=== PATIENT | female | born 1950 | race Caucasian/White ===

== ENCOUNTER → 2016-06-24 | Outpatient (CLI) | payer OTHER ==
[~2016-06-24] MED LIST: ACET1TAB PO; ASPI325T4 PO; BACL50AM IT; CALC500T50 PO; CELE200C PO; ERGO400T2 PO; ESCI20TA10 PO; FENT1PAT19 TP; FENT1PAT91 TD; FURO-69 PO; GLUC1CAP48 PO; INTE0.3K2 SQ; MELO7.5O PO; OMEG1CAP PO; OXYC1TAB7 PO; PRAV20TA PO; UBID100C12 PO
--- NOTE | 2016-06-25 03:34 | PAIN ---
DATE OF SERVICE: 06/24/2016 PROGRESS NOTE DIAGNOSES: Lumbar spondylosis with low back pain. HISTORY OF PRESENT ILLNESS: The patient is a 66-year-old female who returns for followup status post medication management with Duragesic patches at 75 mcg every 3 days. The patient reports she is doing very well with this. She has been on a very stable regimen with good results and about 75-80% improvement in her pain in the low back from the medication. The patient reports no new motor or sensory deficits, no new bowel or bladder incontinence or other complaints. The patient reports her pain anywhere from a 2-4 on a scale of 10. It is essentially constant, aching, which is worse with some activities, walking and standing. She is still using a walker to ambulate, which is helpful and maintaining balance as well as some support with ambulation. The patient reports otherwise doing well. No side effects with the medications and has had appropriate K-TRACS reporting to date and appropriate urinalysis today as well and we will have a urinalysis drawn today as random screening. PHYSICAL EXAMINATION: VITAL SIGNS: The patient's blood pressure is 123/63, pulse 96, respirations 18, temperature is 98.3 degrees Fahrenheit, height is 5 feet 2 inches and weighs 143 pounds. GENERAL: The patient is awake, alert, oriented, appropriate, very pleasant demeanor. HEENT: Shows normocephalic, atraumatic. Extraocular movements are intact and symmetrical. The patient is wearing eyeglasses. Oral cavity shows mucous membranes are moist and pink. Dentition is intact. NECK: Shows anterior throat supple without palpable lymphadenopathy noted. Swallow reflex is symmetrical. CHEST: Shows normal on inspection. Breath sounds are clear to auscultation bilaterally. HEART: Shows S1 and S2 clear. No murmurs are auscultated. ABDOMEN: Soft, nontender, and nondistended. The patient has intrathecal pump, which is easily palpated and nontender. No organomegaly is noted. No rebound or guarding demonstrated. No other abnormalities. BACK: The patient's back shows spine grossly in midline. Some increase in thoracic kyphosis and some mild flattening of lumbar lordotic curvature is noted. The patient's lumbar paraspinous muscle shows some moderate tenderness only in the low lumbar distribution bilaterally and only diffusely without radiation. It is symmetrical without evidence of atrophy or hypertrophy. No trigger points. No tenderness over the sacrum or sacroiliac regions. The patient shows good rotation and motion both laterally as well as extension and flexion of lumbar spine without significant pain reported. EXTREMITIES: Lower extremities show deep tendon reflexes 1+ in the patellar and tendo calcaneus tendons and are equal. Motor exam is approximately 4 on a scale of 5, but is symmetrical with dorsiflexion, extension, quadriceps and hamstring flexion and equal. PLAN: Options were discussed with the patient. We will renew patient's Duragesic patches 75 mcg 1 patch to be worn every 72 hours. The patient given instruction as well as side effects to be aware of the medication. He has been given a 90-day supply and will follow up at the end of that time or sooner if necessary. STACEY VALERIO MD DR: NEYDA/viviana JOB#: [id number] / [id number]
== END | disposition home or self-care (01) ==
LOC: PNCL 12:55
PROVIDERS: ATTEND Anesthesiology
DX: M47.896 Other spondylosis, lumbar region (principal); M54.5 Low back pain
CPT/HCPCS: G0463

== ENCOUNTER → 2016-10-06 | Outpatient (CLI) | payer OTHER ==
[~2016-10-06] MED LIST changes: -ASPI325T4 PO; +ASPI325T8 PO; -CALC500T50 PO; +CALC500T54 PO; -ESCI20TA10 PO; +LEXAPRO20 MG PO; -UBID100C12 PO; +UBID100C40 PO
--- NOTE | 2016-10-07 03:19 | PAIN ---
DATE OF SERVICE: 10/06/2016 PROGRESS NOTE FOR PAIN CLINIC DIAGNOSES: Lumbar spondylosis with low back pain. HISTORY OF PRESENT ILLNESS: This is a 66-year-old female, who returns for followup status post medication management with Duragesic patches. The patient also has a baclofen pump, which is recently had been replaced by her neurologist ____. The patient reports she has been doing fairly well with this and is having no side effects and reports that she has very well with her fentanyl patches with about an 80% improvement in her pain level without side effects from this as well. The patient reports her pain is still having nagging pain and is in the low back as a constant dull pain, which she is doing well with medication, rates as a 5 on a scale of 10. Reports it does not awaken her from sleep at night. She feels better with sitting ____ standings, using a walker to ambulate at all times generally. The patient reports no new motor or sensory deficits, no new bowel or bladder incontinence, no side effects with the medications or other complaints. PHYSICAL EXAMINATION: VITAL SIGNS: The patient's blood pressure is 142/57, pulse 63, respirations 18, weight is 138 pounds. The patient's height is 5 feet 2 inches. GENERAL: The patient is awake, alert, oriented, appropriate, very pleasant demeanor. HEENT: Shows normocephalic, atraumatic. Extraocular movements are intact and symmetrical. The patient wears eyeglasses. Oral cavity shows mucous membranes are moist and pink. Dentition is intact. NECK: Shows anterior throat supple without palpable lymphadenopathy noted. Swallow reflex is symmetrical. Neck shows full rotational motion of the cervical spine without difficulty. CHEST: Shows normal on inspection. Breath sounds are clear to auscultation bilaterally. HEART: Shows S1 and S2 clear. ABDOMEN: Soft, nontender, nondistended. Well healed surgical scars noted from intrathecal pump placement, which is well healing in appearance and mildly tender with palpation, but no erythema or discharge or drainage. BACK: The patient's back shows spine grossly in midline, exaggerated increased thoracic kyphosis and mild flattening of lumbar lordotic curvature. Lumbar paraspinous musculature shows symmetrical on inspection without atrophy, hypertrophy. The patient shows some moderate tenderness in the paraspinous musculature bilaterally with direct palpation, but without radiation. No tenderness over the sacrum or sacroiliac regions. EXTREMITIES: Lower extremities showed deep tendon reflexes 1+ in the patellar and tendo calcaneus tendons are equal. Motor exam is strong with dorsiflexion, extension, quadriceps and hamstring flexion symmetrical approximately 4 on a scale of 5, but equal. PLAN: Options were discussed with the patient. We will refill the patient's Duragesic patches 75 mcg changed once every 72 hours. The patient was given a 90-day supply with instructions, side effects to be aware of regarding the medication as well and will follow up in approximately 90 days or sooner if necessary. STACEY VALERIO MD DR: NEYDA/viviana JOB#: [id number] / [id number]
== END | disposition home or self-care (01) ==
LOC: PNCL 13:00
PROVIDERS: ATTEND Anesthesiology
DX: M47.896 Other spondylosis, lumbar region (principal)
CPT/HCPCS: G0463

== ENCOUNTER → 2016-12-01 | Outpatient (CLI) | payer OTHER ==
--- NOTE | 2016-12-02 02:40 | PAIN ---
DATE OF SERVICE: 12/01/2016 PROGRESS NOTE FOR PAIN CLINIC DIAGNOSIS: Lumbar spondylosis with low back pain. HISTORY OF PRESENT ILLNESS: The patient is a 66-year-old female who returns for followup status post medication management with Duragesic patches. The patient is wearing a 75 mcg patch q.72 hours with good results. The patient has been on this for several years now, is doing very well, very stable regimen. She also has a baclofen pump, which is maintained by her neurologist and was recently replaced. The patient reports her pain level is about a 5 on a scale of 10 at its worst in her low back, but is very tolerable. She is increasing her activity with greater ease and comfort with the medications. She reports good longevity with the medication lasting a good 72 hours without difficulty. The patient reports no side effects with the medication, occasional constipation, but it is well controlled with some [id number]-[id number] medications and hydration that she is using. We tried some Movantik with her in the past, but that was too powerful and the patient reports she had an overwhelming response from it and does well with her own management at this time. The patient reports no new motor or sensory deficits, no new bowel or bladder incontinence or other complaints. Reports pain again in the low back. Describes as aching, dull, alternating with some sharper pains with activity, but sleeping well at night, does not awaken her from sleep. She is doing much better with sitting or lying down. Standing and walking, which she uses a walker to accomplish, is tolerable, but is more painful with ambulation. The patient reports no new motor or sensory deficits, no new changes. PHYSICAL EXAMINATION: VITAL SIGNS: Today, the patient's blood pressure is ____, pulse 75, respirations 18, temperature 98.7 degrees Fahrenheit, height is 5 feet 2 inches, weight is 138 pounds. GENERAL: The patient is awake, alert, oriented, appropriate, has a very pleasant demeanor. HEENT: Shows normocephalic, atraumatic. Extraocular movements are intact and symmetrical. Oral cavity shows mucous membranes moist and pink. Dentition is intact. The patient is wearing eye glasses. Throat shows anterior throat supple without palpable lymphadenopathy noted. Swallow reflex is symmetrical. NECK: Shows full rotational motion of the cervical spine, both laterally as well as extension and flexion without difficulty. CHEST: Shows normal on inspection with breath sounds clear to auscultation bilaterally. HEART: Shows S1 and S2 clear. No murmurs auscultated. ABDOMEN: Soft, obese, nontender, nondistended. No palpable organomegaly is noted. The patient does have an easily palpable intrathecal pump, which is mobile and nontender with well-healed surgical scar noted. BACK: Shows increased thoracic kyphosis and some flattening of the lumbar lordotic curvature. Lumbar paraspinous musculature shows symmetrical on inspection, with palpation shows some moderate tenderness, but only in the lower lumbar distribution without significant radiation or asymmetry. The patient shows somewhat limited extension of the lumbar spine, but good forward flexion, right and left lateral rotation is performed with adequate rotation greater than 10 degrees right and left without significant pain reported. EXTREMITIES: ____ Lower extremities show deep tendon reflexes 1+ in the patellar and tendo calcaneus tendons. Motor exam is strong with dorsiflexion, extension, quadriceps and hamstring flexion, intact at about 4 on a scale of 5, but symmetrical. Peripheral pulses are 1+ posterior tibial and dorsalis pedis pulses. No peripheral edema is noted. No clubbing or cyanosis. The patient is able to stand and again has a significant forward flexed posture with increased thoracic kyphosis, is walking with a shuffling gait, manages very well using a walker to ambulate. PLAN: Options were discussed with the patient and her who accompanies her to visit today. Old chart was reviewed as was her current medication regimen and updated. Current review of systems updated today as well and we will refill the patient's Duragesic patches at 75 mcg for a 90-day supply. The patient was given instructions as well as side effects to be aware of with the medication. Also encouraged the patient to increase her activity as tolerated and to maintain her walker usage as she is doing. Discussed nutritional options with hydration being the significant emphasis with the narcotic analgesics and the patient is to keep herself fairly well hydrated and we will continue to encourage this as well. The patient will follow up in approximately 90 days or sooner if necessary. STACEY VALERIO MD DR: NEYDA/viviana JOB#: [id number] / [id number]
== END | disposition home or self-care (01) ==
LOC: PNCL 12:46
PROVIDERS: ATTEND Anesthesiology
DX: M47.896 Other spondylosis, lumbar region (principal)
CPT/HCPCS: G0463

== ENCOUNTER → 2017-04-23 | Outpatient (CLI) | payer OTHER ==
[~2017-04-23] MED LIST changes: +ASPI-630 PO
--- NOTE | 2017-04-23 18:05 | PAIN ---
DATE OF SERVICE: 04/23/2017 PROGRESS NOTE FOR PAIN CLINIC DIAGNOSES: Low back pain with lumbar spondylosis. HISTORY OF PRESENT ILLNESS: The patient is a 67-year-old female who returns for followup status post medication management with Duragesic patches 75 mcg. The patient has been on very stable regimen for extended period of time now with good relief of pain, approximately 80% by her estimation. The patient reports no side effects with medication. No skin irritation, constipation, nausea, dysphoria or memory difficulties. The patient reports she still has significant pain in the low back, which is an aching pain on the mid back as well, but very well controlled for the most part with the Duragesic patches. The patient reports her pain is a 7 on a scale of 10 at its worst, 6 on average and a 4 at its least and is a 4 today. The patient reports she is still increasing activity, using a walker to ambulate. She and her are walking almost daily basis when the weather is not too cold. The patient reports she sporadically awakens at night from the pain, but usually is able to sleep through the night without difficulty. No new motor or sensory deficits. Again, no side effects with medication. PHYSICAL EXAMINATION: VITAL SIGNS: Today, blood pressure 144/67, pulse 70, respirations 16, temperature 98.8 degrees Fahrenheit, weight is 140 pounds. GENERAL: The patient is awake, alert, oriented, appropriate, very pleasant demeanor. HEENT: Shows normocephalic, atraumatic. Extraocular movements are intact, symmetrical. Oral cavity: Mucous membranes moist and pink. Dentition is intact. NECK: Shows anterior throat supple without palpable lymphadenopathy noted. Swallow reflex symmetrical. CHEST: Shows normal with inspection. Breath sounds clear to auscultation bilaterally. HEART: Shows S1, S2 clear. No murmurs auscultated. ABDOMEN: Obese, soft, nontender, nondistended. The patient has easily palpable intrathecal pump, which is nontender with well-healed surgical scar over it. BACK: The patient's back shows significant exaggeration of thoracic kyphosis, some flattening lumbar lordotic curvature. No previous bruises, lesions, rashes are noted on the skin. Lumbar paraspinous muscle shows some diffuse tenderness throughout the upper, middle, lower distribution, but only diffusely without radiation, without atrophy or hypertrophy. EXTREMITIES: Lower extremities show deep tendon reflexes 1+ in the patellar and tendo calcaneus tendons are equal. Motor exam is strong with dorsiflexion, extension, quads and hamstring rated at approximately 4 on a scale of 5, but symmetrical. Peripheral pulses are 1+ posterior tibial. No peripheral edema is noted bilaterally. Options were discussed with the patient. The patient's old chart was reviewed, her current medication regimen updated, current review of systems updated today as well and we will refill the patient's Duragesic patches for 90-day supply. The patient has had appropriate K-TRACS reporting as well as appropriate urinalyses to date and while we renew the patient's narcotic contract as it is scheduled to renew, we will schedule for urinalysis in the future on March 03. The patient will follow up in approximately 90 days, was given instructions as well as side effects to be aware with medication. STACEY VALERIO MD DR: NEYDA/viviana JOB#: [id number] / [id number]
== END | disposition home or self-care (01) ==
LOC: PNCL 09:52
PROVIDERS: ATTEND Anesthesiology
DX: M47.896 Other spondylosis, lumbar region (principal)
CPT/HCPCS: G0463

== ENCOUNTER → 2017-07-16 | Outpatient (CLI) | payer OTHER | LOC: PNCL 11:14 | DX: M47.896 Other spondylosis, lumbar region (principal); M54.5 Low back pain; Z88.0 Allergy status to penicillin; Z88.8 Allergy status to other drugs, medicaments and biological substances; Z79.82 Long term (current) use of aspirin; Z79.899 Other long term (current) drug therapy | CPT/HCPCS: G0463 ==

== ENCOUNTER → 2017-11-05 | Outpatient (CLI) | payer OTHER | END | disposition home or self-care (01) | LOC: PNCL 09:03 | DX: M47.896 Other spondylosis, lumbar region (principal); Z79.899 Other long term (current) drug therapy | CPT/HCPCS: G0463 ==

== ENCOUNTER → 2018-01-28 | Outpatient (CLI) | payer OTHER ==
--- NOTE | 2018-01-28 13:36 | PAIN ---
DATE OF SERVICE: 01/28/2018 PROGRESS NOTE FOR PAIN CLINIC DIAGNOSES: Low back pain with lumbar spondylosis. HISTORY OF PRESENT ILLNESS: The patient is a 68-year-old female who returns for followup status post medication management, Duragesic patches 75 mcg. The patient has been on very stable regimen for extended period of time with very good results. The patient reports about 75%-80% improvement overall and reports she has been very stable. No new motor or sensory deficits and no new pain complaints. The patient reports her pain is a 4 on a scale of 10 at its worst, 4 on average, 4 at its least and is a 4 today. The patient reports no new motor or sensory deficits and no new bowel or bladder incontinence or other complaints. Pain in the low back mainly and some in the right shoulder as well but mainly in the low back, worse with walking and standing for a prolonged period. She is using a walker, which she has had for some time as well. The patient reports it does not awaken her from sleep at night. She feels much better with sitting or lying down with the pain is almost gone. The patient reports no other complaints. Again, doing well with the patches and no skin irritation. She is rotating the areas of the patch placed mainly on the upper back and posterior shoulders every 3 days. The patient is maintaining hydration. No constipation complaint. No itching, nausea or sedation. PHYSICAL EXAMINATION: VITAL SIGNS: The patient's blood pressure 141/57, pulse 90, respirations 18, temperature 98.8 degrees Fahrenheit, height is 5 feet 2 inches and weight is 135 pounds. GENERAL: The patient is awake, alert, oriented, appropriate and very pleasant demeanor. HEENT: Head shows normocephalic and atraumatic. Extraocular movements intact and symmetrical. Oral cavity: Mucous membranes moist and pink. The patient is wearing eyeglasses. NECK: Shows anterior throat supple without palpable lymphadenopathy noted. Swallow reflex is symmetrical. CHEST: Shows normal on inspection. Breath sounds are clear to auscultation bilaterally. HEART: Shows S1 and S2 clear. No murmurs auscultated. ABDOMEN: Soft, nontender and nondistended. No palpable organomegaly is noted. No rebound or guarding demonstrated. BACK: Shows grossly midline spine. The patient has increased thoracic kyphosis, which is fairly exaggerated, with flattening of the lumbar lordotic curvature. With inspection of the lumbar paraspinous musculature shows no asymmetry and with palpation shows some moderate tenderness throughout the upper, middle and lower distribution of the paraspinous muscles. No tenderness over the spinous processes, sacrum or sacroiliac regions. The patient shows good rotation of motion in the lumbar spine, both laterally as well as flexion, extension without significant pain reported. EXTREMITIES: The patient's lower extremities show deep tendon reflexes 1+ in the patellar and tendo-calcaneus tendons. Motor exam is a 4 on a scale of 5 and equal and symmetrical bilaterally with dorsiflexion, extension, quadriceps and hamstring flexion. Peripheral pulses are 1+ posterior tibia. No peripheral edema is noted bilaterally. Options were discussed with the patient and the patient's spouse who accompanies her to visit today and the patient's old chart was reviewed as well as her current medication regimen updated. Current review of systems updated today as well. We will refill the patient's 90-day supply of Duragesic patch 75 mcg as she is doing very well with this. The patient has had appropriate K-TRACS reporting as well as appropriate urinalysis to date. We will have her return in approximately 90 days or sooner if necessary. The patient was counseled as to activity level as well as side effects to be aware of as well as medication regimen and side effects regarding the medications. STACEY VALERIO MD DR: NEYDA/viviana JOB#: [id number] / [id number]
== END | disposition home or self-care (01) ==
LOC: PNCL 10:50
PROVIDERS: ATTEND Anesthesiology
DX: M47.896 Other spondylosis, lumbar region (principal); Z88.0 Allergy status to penicillin; Z88.8 Allergy status to other drugs, medicaments and biological substances
CPT/HCPCS: G0463

== ENCOUNTER → 2018-03-23 | Outpatient (CLI) | payer OTHER ==
--- NOTE | 2018-03-24 00:35 | PAIN ---
DATE OF SERVICE: 03/23/2018 PROGRESS NOTE FOR PAIN CLINIC DIAGNOSIS: Low back pain with lumbar spondylosis. HISTORY OF PRESENT ILLNESS: The patient is a 68-year-old female who returns for followup status post medication management with Duragesic patch 75 mcg. The patient has does very well with these, has been on a very stable regimen with the medication for several years now with no side effects from the medication at all. The patient reports it controls her pain to about a 75-80% level. Reports she is sleeping well at night. She still has the pain in the low back and the left shoulder at times, but is very dependent on her activity. Pain is worst on a scale of 10 as an 8 last week, average is 6, at its least is a 3 and is a 3 today. The patient reports she sleeps about 7-8 hours at night. It does not disturb her from sleep. She is getting around with reasonable comfort and is happy with her level of pain control at this time. The patient reports no new motor or sensory deficits, no new bowel or bladder incontinence or other complaints. PHYSICAL EXAMINATION: VITAL SIGNS: The patient's blood pressure is 102/32, pulse 77, respirations are 18, temperature is 98.9 degrees Fahrenheit and height is 5 feet 2 inches. GENERAL: The patient is awake, alert, oriented, appropriate, very pleasant demeanor. HEENT: Head shows normocephalic and atraumatic. Extraocular movements are intact and symmetrical. Oral cavity: Mucous membranes are moist and pink. Dentition is intact. NECK: Shows anterior throat is supple without palpable lymphadenopathy noted. Swallow reflex is symmetrical. Neck shows full rotational motion of the cervical spine both laterally as well as extension and flexion without difficulty. CHEST: Shows normal with inspection. Breath sounds are clear to auscultation bilaterally. HEART: Shows S1 and S2 clear. No murmurs are auscultated. ABDOMEN: Soft, nontender and nondistended. The patient has easily palpable intrathecal pump in the left lower quadrant, which is nontender with palpation or displacement and well healed surgical scar over the pump. BACK: The patient's back shows spine grossly in the midline with significant increase in thoracic kyphosis and some flattening of the lumbar lordotic curvature. Lumbar paraspinous muscle shows symmetrical on inspection. On palpation shows some moderate tenderness in the upper, middle and lower distribution of the paraspinous muscles, but only diffusely without radiation. The patient has good rotation both laterally as well as extension and flexion without significant increase in pain. EXTREMITIES: Lower extremities show deep tendon reflexes 1+ in the patellar and tendo-calcaneus tendons. Motor exam is strong with approximately 4 on a scale of 5 with equal and symmetrical dorsiflexion, extension, quadriceps and hamstring flexion bilaterally. Peripheral pulses are 1+ posterior tibia. No peripheral edema is noted. The patient is walking with a walker, has a significant forward flexion with a shuffling gait as well. Options were discussed with the patient. The patient's old chart was reviewed as was her current medication regimen updated. Current review of systems updated today as well. We will proceed with refill of Duragesic patches for 2-month period, 75 mcg. The patient was given instruction as well as side effects to be aware of with the medication. The patient will return to the clinic in approximately 2 months or sooner if necessary. The patient has had appropriate K-TRACS reporting as well as urinalysis to date. We will update the patient's narcotic contract today as well and she was given a copy of this also. STACEY VALERIO MD DR: NEYDA/viviana JOB#: [id number] / [id number]
== END | disposition home or self-care (01) ==
LOC: PNCL 11:03
PROVIDERS: ATTEND Anesthesiology
DX: M47.896 Other spondylosis, lumbar region (principal)
CPT/HCPCS: G0463

== ENCOUNTER → 2018-05-18 | Outpatient (CLI) | payer MEDICARE ==
--- NOTE | 2018-05-18 12:26 | PAIN ---
DATE OF SERVICE: 05/18/2018 PROGRESS NOTE FOR PAIN CLINIC DIAGNOSES: Lumbar spondylosis with low back pain. HISTORY OF PRESENT ILLNESS: The patient is a 68-year-old female who returns for followup status post medication management with Duragesic patch 75 mcg. The patient has been on very stable regimen for extended period of time, done very well with these with about a 70-80% improvement with the medication. The patient reports she is having a bad day today. She has been using a mobile wheelchair to get around. She usually uses a four-point walker with some pain in the low back, but when sitting, the pain is almost gone. The patient reports it does not awaken her from sleep at night. It is only present with standing or walking for prolonged periods, greater than 15-20 minutes. The patient reports it is well controlled, however, with the Duragesic patches. She rates her pain as an 8 on a scale of 10 at its worst, 4 on average and a 1-2 at the least and is a 4 today. The patient reports no new motor or sensory deficits, no new changes. No side effects with the medication. The patient does have a baclofen pump, which is maintained by her neurologist and reports good control with spasticity with this as well. PHYSICAL EXAMINATION: VITAL SIGNS: Today, the patient's blood pressure 135/57, pulse 87, respirations are 18, temperature 98.3 degrees Fahrenheit, height is 5 feet 2 inches, weighs 140 pounds. GENERAL: The patient is awake, alert, oriented, appropriate, very pleasant demeanor. The patient accompanied by her . HEENT: Head shows normocephalic, atraumatic. The patient wears eyeglasses. Extraocular movements intact and symmetrical. Oral cavity: Mucous membranes moist and pink. Dentition is intact. NECK: Shows anterior throat supple without palpable lymphadenopathy noted. Swallow reflex symmetrical. CHEST: Shows normal with inspection. Breath sounds clear to auscultation bilaterally. HEART: Shows S1, S2 clear. No murmurs auscultated. ABDOMEN: Soft, nontender, nondistended. No palpable organomegaly is noted. No rebound or guarding demonstrated. BACK: Shows spine grossly in the midline, increased thoracic kyphosis fairly significantly and some flattening of lumbar lordotic curvature is noted. Palpation of the paraspinous musculature shows moderate tenderness throughout the thoracic paraspinous musculature as well as the upper, middle and lower distribution of the paraspinous muscles in the lumbar distribution, but diffusely without atrophy, hypertrophy, without trigger points, without radiation. No tenderness over the sacrum or sacroiliac regions. The patient does show good rotational motion of lumbar spine, both laterally as well as extension and flexion without significant difficulty. EXTREMITIES: Lower extremities show deep tendon reflexes 1+ in the patellar tendons. Motor exam is approximately 4 on a scale of 5, but equal and symmetrical with dorsiflexion, extension, quadriceps and hamstring flexion and equal bilaterally. Peripheral pulses are 1+ posterior tibial. No peripheral edema is noted bilaterally. PLAN: Options were discussed with the patient. The patient's old chart was reviewed as her current medication regimen updated. Current review of systems updated today as well and we will proceed with refill of Duragesic patch 75 mcg q. 72 hours. The patient again has had very good results with the medications, had been on a very stable regimen. We will refill this for a 60-day. She has had appropriate K-TRACS reporting as well as appropriate urinalysis to date. We will have the urinalysis drawn today as routine screening. Also, renew the patient's medication contract as well. The patient will follow up in approximately 2 months or sooner if necessary. STACEY VALERIO MD DR: NEYDA/viviana JOB#: [id number] / [id number]
== END | disposition home or self-care (01) ==
LOC: PNCL 11:13
PROVIDERS: ATTEND Anesthesiology
DX: M47.816 Spondylosis without myelopathy or radiculopathy, lumbar region (principal)
CPT/HCPCS: G0463

== ENCOUNTER → 2018-08-15 | Outpatient (CLI) | payer MEDICARE ==
--- NOTE | 2018-08-16 03:27 | PAIN ---
DATE OF SERVICE: 08/15/2018 PROGRESS NOTE FOR PAIN CLINIC: DIAGNOSIS: Low back pain with lumbar spondylosis. HISTORY OF PRESENT ILLNESS: The patient is a 68-year-old female who returns for followup, status post medication management with Duragesic patches. The patient reports she is doing very well with this, on a very stable regimen of the patch 75 mcg q. 72 hours. The patient has been on this for an extended period of time, has had appropriate K-TRACS reporting as well as appropriate urinalysis. He reports that the pain has decreased by about 80% from the patches without side effects as noted. The patient reports no new motor or sensory deficits. No new changes. The patient has an intrathecal baclofen pump, which is managed by her neurologist and doing well with this she reports as well. The patient reports no new concerns. No new motor or sensory deficits. No new bowel or bladder incontinence or other complaints. PHYSICAL EXAMINATION: VITAL SIGNS: The patient's blood pressure is 138/64, pulse 70, respirations 18, temperature 99.2 degrees Fahrenheit, height is 5 feet 2 inches, weight 140 pounds. The patient rates the pain is a 4 on a scale of 10 on average, least and worst, and is a 4 today. The patient describes it as dull, achy in the low back itself. HEENT: Head shows normocephalic and atraumatic. Extraocular movements are intact and symmetrical. Oral cavity: Mucous membranes moist and pink. Dentition is intact. NECK: Shows anterior throat supple without palpable lymphadenopathy noted. Swallow reflex symmetrical. CHEST: Shows normal on inspection. Breath sounds are clear to auscultation bilaterally. HEART: Shows S1 and S2 clear. No murmurs auscultated. ABDOMEN: Obese, nontender and nondistended. No palpable organomegaly is noted. No rebound or guarding demonstrated. Easily palpable intrathecal pump is noted, which is normal, nontender. BACK: The patient's back shows spine grossly in the midline, slight exaggeration of thoracic kyphosis and minor flattening of the lumbar lordotic curvature. Lumbar paraspinous muscle shows symmetrical on inspection, on palpation shows some mild tenderness going diffusely throughout the upper, middle, lower distribution of the paraspinous muscles without radiation. The patient has good rotational motion with laterally as well as extension and flexion without significant increase in pain. EXTREMITIES: Lower extremities show deep tendon reflexes at 1+ in the patellar and tendo-calcaneus tendons are equal. Motor exam is strong with 5/5 dorsiflexion, extension. Peripheral pulses are 1+ posterior tibial. No peripheral edema is noted bilaterally. The patient is walking with a walker with significant forward flexion of the lumbar spine and does appear to favor the left lower extremity mildly, but ambulates by her report without significant discomfort. Options were discussed with the patient. The patient's old chart was reviewed as well as current medication regimen updated. Current review of systems updated today as well. We will refill the patient's Duragesic patch for 2-month prescription. The patient has had again appropriate K-TRACS reporting as well as appropriate urinalysis to date and we will refill this for 2 month period. The patient is to return to clinic in approximately 2 months or sooner. Next, he was given instruction as well as side effects to be aware of with the medication. STACEY VALERIO MD DR: NEYDA/nts JOB#: [id number] / [id number]
== END | disposition home or self-care (01) ==
LOC: PNCL 11:21
PROVIDERS: ATTEND Anesthesiology
DX: M47.816 Spondylosis without myelopathy or radiculopathy, lumbar region (principal)
CPT/HCPCS: G0463

== ENCOUNTER → 2018-10-10 | Outpatient (CLI) | payer MEDICARE ==
--- NOTE | 2018-10-10 22:45 | PAIN ---
DATE OF SERVICE: 10/10/2018 PROGRESS NOTE FOR PAIN CLINIC DIAGNOSIS: Lumbar spondylosis with low back pain. HISTORY OF PRESENT ILLNESS: The patient is a 68-year-old female who returns for followup status post medication management with Duragesic patches 75 mcg. The patient has been doing very well, has been on a very stable regimen for extended period of time with good results with the medication without side effects. The patient reports her pain is decreased by about 75-80% level with the medication. She is able to function, although she is becoming less and less mobile by her own report and is using a walker more frequently to get around. She is feeling fairly good as far as activity in getting around, but reports her pain in the low back and the bilateral hips are worse with standing for prolonged periods and walking for prolonged periods greater than 15-20 minutes. The patient reports it is much better with sitting or lying down, it does not awaken her from sleep at night. She is sleeping 8 hours a night without difficulty. The patient reports her pain is 7 on a scale of 10 at its worst over the past week, 5 on average, 3 at its least and is 3 today. The patient reports it is aching, deep pain in the low back itself. The patient reports no side effects with the medication, no other complaints. The patient does have intrathecal pump with baclofen, which is monitored by her neurologist. PHYSICAL EXAMINATION: VITAL SIGNS: The patient's blood pressure is 121/47, pulse is 50, respirations are 18, temperature is 98.6 degrees Fahrenheit. Height is 5 feet 2 inches, weighs 140 pounds. GENERAL: The patient is awake, alert, oriented, appropriate, very pleasant demeanor. HEENT: Head shows normocephalic, atraumatic. Extraocular muscles are intact and symmetrical. Oral cavity: Mucous membranes moist and pink. Dentition is intact. NECK: Shows anterior throat supple without palpable lymphadenopathy noted. Swallow reflex symmetrical. CHEST: Shows normal with inspection. Breath sounds are clear bilaterally. HEART: Shows S1, S2 clear. No murmurs auscultated. ABDOMEN: Obese, but soft, nontender, nondistended. Easily palpable intrathecal pump is noted which is mobile and nontender. BACK: Shows spine grossly in the midline, increased thoracic kyphosis to a fairly significant extent and some flattening of the lordotic curvature is present. Lumbar paraspinous muscle shows symmetrical on inspection; palpation shows some moderate tenderness diffusely bilaterally, but only diffusely without significant radiation. EXTREMITIES: The patient's lower extremities show deep tendon reflexes 1+ in the patellar and tendo calcaneus tendons. Motor exam is strong with 5/5 dorsiflexion, extension, quadriceps and hamstring flexion and equal bilaterally. Options were discussed with the patient and the patient's who accompanied her to visit today. We will refill the patient's medication as she is doing very well with this, has been on very stable regimen, has no significant side effects. The patient has had appropriate K-TRACS reporting as well as appropriate urinalysis to date. We refilled the medication for 2-month period with instructions and side effects to be aware of discussed once again. The patient will follow up in approximately 2 months or sooner as necessary. STACEY VALERIO MD DR: NEYDA/viviana JOB#: [id number] / [id number]
== END | disposition home or self-care (01) ==
LOC: PNCL 11:18
PROVIDERS: ATTEND Anesthesiology
DX: M47.816 Spondylosis without myelopathy or radiculopathy, lumbar region (principal); M40.294 Other kyphosis, thoracic region
CPT/HCPCS: G0463

== ENCOUNTER → 2018-12-05 | Outpatient (CLI) | payer MEDICARE ==
--- NOTE | 2018-12-05 19:11 | PAIN ---
DATE OF SERVICE: 12/05/2018 PROGRESS NOTE FOR PAIN CLINIC DIAGNOSIS: Low back pain with lumbar spondylosis. HISTORY OF PRESENT ILLNESS: The patient is a 68-year-old female who returns for followup status post medication management with Duragesic patches. The patient reports she is doing very well with these, been on a very stable regimen 25 mcg q.72 hours. The patient reports no side effects. Reports the pain has decreased by about 80% overall, still some difficulty with walking and her posture is getting worse with forward flexion and stooping over when she is walking. She has been using a wheelchair, which she has with her now today. The patient reports pain across the low back, but again very well controlled. No side effects with the medication. The patient reports the pain is just dull and aching. She is sleeping well at night, does not awaken her from sleep, better with sitting or lying down. The patient reports pain is a 6 on a scale of 10 at its worst over the past week, 4 on average, 2 at its least and is a 2 today. The patient reports no new motor or sensory deficits, no new bowel or bladder incontinence or other complaints. PHYSICAL EXAMINATION: VITAL SIGNS: The patient's blood pressure 139/63, pulse 75, respirations 18, temperature 98.6 degrees Fahrenheit, height is 5 feet 2 inches, weight is 140 pounds. GENERAL: The patient is awake, alert, oriented, appropriate, very pleasant demeanor. The patient is accompanied by her . HEENT: Shows normocephalic, atraumatic. Extraocular movements are intact and symmetrical. Oral cavity: Mucous membranes are moist and pink. Dentition is intact. NECK: Shows anterior throat supple without palpable lymphadenopathy noted. Swallow reflex symmetrical. CHEST: Shows normal on inspection. Breath sounds clear to auscultation bilaterally. HEART: Shows S1, S2 clear. No murmurs auscultated. ABDOMEN: Soft, nontender, nondistended. The patient has intrathecal pump, which is easily palpable, but is nontender as well. BACK: The patient's back shows spine grossly in the midline, exaggerated thoracic kyphosis and flattening of lumbar lordotic curvature. Lumbar paraspinous muscle shows symmetrical on inspection with palpation shows some moderate tenderness, but only diffusely without radiation. The patient has good rotational motion of lumbar spine, both laterally with some minor tenderness with extension, but not with forward flexion. The patient's lower extremities show deep tendon reflexes 1+ in the patellar and tendo-calcaneus tendons. Motor exam is strong with 5/5 dorsiflexion, extension, quadriceps and hamstring flexion and are symmetrical bilaterally as well. The patient has no peripheral edema in the lower extremities. Peripheral pulses are 1+ bilaterally. Options were discussed with the patient. The patient's old chart was reviewed as her current medication regimen updated. Current review of systems updated today as well. We will proceed with refill medications for a 2-month period. The patient had appropriate K-TRACS reporting and has had appropriate urinalysis today as well and we will refill this for a 2-month period. The patient was given instruction as well as side effects to be aware of. The patient will follow up in approximately 2 months or sooner as necessary. STACEY VALERIO MD DR: NEYDA/viviana JOB#: [id number] / [id number]
== END | disposition home or self-care (01) ==
LOC: PNCL 11:13
PROVIDERS: ATTEND Anesthesiology
DX: M47.816 Spondylosis without myelopathy or radiculopathy, lumbar region (principal)
CPT/HCPCS: G0463

== ENCOUNTER → 2019-01-30 | Outpatient (CLI) | payer MEDICARE ==
--- NOTE | 2019-01-30 20:53 | PAIN ---
DATE OF SERVICE: 01/30/2019 PROGRESS NOTE FOR PAIN CLINIC DIAGNOSIS: Low back pain with lumbar spondylosis. HISTORY OF PRESENT ILLNESS: The patient is a 69-year-old female who returns for followup status post medication management with Duragesic patches of 75 mcg. The patient did very well with these changes every 3 days with very good decrease in pain by estimated 80%. The patient reports everything has been the same. She has been on a very stable regimen. No new changes, no side effects with the medication. Rates her pain as 6 on a scale of 10 at its worst over the past week, 4 on average, 2 at its least and is a 2 today and in the low back itself, some occasional radiation into the lower extremities, mostly just in the back with walking, standing, changing positions. The patient is using a wheelchair for more longer traveling and she is with one today, although she does get out easily and stands on the scale today to get her weight without significant difficulty. The patient reports no new motor or sensory deficits, describes the pain as dull and aching, but again very well controlled and without side effects with her medication regimen. The patient reports she is sleeping well at night, does not disturb her from sleep. PHYSICAL EXAMINATION: VITAL SIGNS: The patient's blood pressure 118/54, pulse 73, respirations are 18, temperature 98.4 degrees Fahrenheit, height is 5 feet 2 inches, weight is 127 pounds. GENERAL: The patient is awake, alert, oriented, appropriate, very pleasant demeanor. HEENT: Head shows normocephalic, atraumatic. Extraocular movements are intact and symmetrical. Oral cavity: Mucous membranes moist and pink. Dentition is intact. NECK: Shows anterior throat supple without palpable lymphadenopathy noted. Swallow reflex symmetrical. CHEST: Shows normal on inspection. Breath sounds clear to auscultation bilaterally. HEART: Shows S1, S2 clear. No murmurs auscultated. ABDOMEN: Soft, nontender, nondistended. BACK: Shows spine grossly in the midline. Slight exaggeration of the cervical lordotic curvature, also significant exaggeration of thoracic kyphotic curvature and some mild flattening of lumbar lordotic curvature. Paraspinous musculature shows symmetrical, but without significant pain or radiation throughout the thoracic and lumbar distributions. The patient's lower extremities show deep tendon reflexes 1+ in the patellar and tendo calcaneus tendons. Motor exam is approximately 4 on a scale of 5, but symmetrical and equal with dorsiflexion, extension, quadriceps and hamstring flexion. Options were discussed with the patient. The patient's old chart was reviewed as her current medication regimen updated. Current review of systems updated today as well and we will refill the patient's Duragesic patches 75 mcg with instructions, side effects to be aware of, discussed 2-month prescription. The patient has had appropriate K-TRACS reporting as well as appropriate urinalysis to date and we will make this a 2-month refill. The patient will return to the clinic in approximately 2 months or sooner if necessary. STACEY VALERIO MD DR: NEYDA/viviana JOB#: [id number] / [id number]
== END | disposition home or self-care (01) ==
LOC: PNCL 11:14
PROVIDERS: ATTEND Anesthesiology
DX: M47.896 Other spondylosis, lumbar region (principal); M40.294 Other kyphosis, thoracic region
CPT/HCPCS: G0463

== ENCOUNTER → 2019-03-27 | Outpatient (CLI) | payer MEDICARE ==
--- NOTE | 2019-03-28 02:05 | PAIN ---
DATE OF SERVICE: 03/27/2019 PAIN CLINIC PROGRESS NOTE DIAGNOSIS: Low back pain with lumbar spondylosis. HISTORY OF PRESENT ILLNESS: The patient is a 69-year-old female who returns for followup status post medication management with Duragesic patches. The patient did very well with 75 mcg patch, reports no significant changes. No significant side effects. Pain is controlled very well, approximately 75-80% or better. The patient reports no changes, has been on a very stable regimen, is very pleased with her level of control. She has been increasing her distance with the traveling, although still has some significant pain with walking and standing. The patient continues to have a baclofen pump, which is managed by her neurologist as well. The patient reports her pain is 7 on a scale of 10, it was worst over the past week, 4 on average, 3 at least and is a 3 today. The patient reports it is aching pain in the low back itself, again well controlled without side effects with the Duragesic patch. The patient reports it does not awaken her from sleep at night, much better with sitting or lying down, worse with standing, walking and changing positions. PHYSICAL EXAMINATION: VITAL SIGNS: The patient's blood pressure 122/60, pulse 72, respirations 16, temperature 98.6 degrees Fahrenheit, weight is 130 pounds. GENERAL: The patient is awake, alert, oriented, appropriate, very pleasant demeanor. The patient is accompanied by her . HEENT: Shows normocephalic, atraumatic. Extraocular movements are intact and symmetrical. The patient wears eyeglasses. Oral cavity: Mucous membranes are moist and pink. Dentition is intact. NECK: Shows anterior throat is supple. Swallow reflex symmetrical. CHEST: Shows normal on inspection. Breath sounds are clear bilaterally. HEART: Shows S1, S2 clear. No murmurs auscultated. ABDOMEN: Soft, nontender, nondistended. Easily palpable intrathecal pump is noted which is nontender. BACK: Shows spine grossly in midline with a significant increase in thoracic kyphosis and some flattening of lumbar lordotic curvature. Lumbar paraspinous muscle shows symmetrical on inspection with some mild tenderness diffusely throughout the upper, middle and lower distribution of paraspinous muscles, but only diffusely without significant radiation. EXTREMITIES: Lower extremities show deep tendon reflexes 1+ patellar and tendo calcaneus tendons. Motor exam is strong with 5/5 dorsiflexion, extension, quadriceps and hamstring flexion is symmetrical. Peripheral pulses are 1+ posterior tibia. No peripheral edema is noted bilaterally. Options were discussed with the patient. The patient's old chart was reviewed as her current medication regimen updated. Current review of systems updated today as well and we will proceed with refill of Duragesic patches for a 2-month supply. The patient had appropriate urinalysis to date, appropriate K-TRACS reporting as well. We will have urinalysis today as routine screening as well as renew the patient's narcotic contract. The patient was given a copy of this as well. The patient will follow up in approximately 2 months or sooner as necessary. STACEY VALERIO MD DR: NEYDA/viviana JOB#: [id number] / [id number]
== END ==
LOC: PNCL 11:21
PROVIDERS: ATTEND Anesthesiology
DX: M47.816 Spondylosis without myelopathy or radiculopathy, lumbar region (principal)
CPT/HCPCS: G0463

== ENCOUNTER → 2019-05-23 | Outpatient (CLI) | payer MEDICARE ==
--- NOTE | 2019-05-23 22:21 | PAIN ---
DATE OF SERVICE: 05/23/2019 PROGRESS NOTE FOR PAIN CLINIC DIAGNOSIS: Low back pain with lumbar spondylosis. HISTORY OF PRESENT ILLNESS: The patient is a 69-year-old female who returns for followup status post medication management with Duragesic patches. The patient reports doing very well, has been on a very stable regimen, 75-80% improvement overall with the pain medication without significant side effects. The patient reports no new motor or sensory deficits, no new changes, still some pain in the low back, worse with standing and changing positions, especially standing from a seated position, but generally doing better overall. The patient reports it does awake her up from sleep, sometimes at about 3-4 hour interval, but not every night. The patient reports no new motor or sensory deficits, no new changes, still some pain in her left shoulder, which is increasing as well. She is having her orthopedist look at this as well. The patient had a recent MRI scan for her multiple sclerosis and reports that it has been fairly stable so far. The patient reports no new motor or sensory deficits, no new changes. PHYSICAL EXAMINATION: VITAL SIGNS: The patient's blood pressure is 159/78, pulse 83, respirations 16, temperature 98.8 degrees Fahrenheit, weight is 120 pounds. The patient rates her pain as a 6 on a scale of 10 at its worst over the past week, 4 on average, 2 at its least and is a 4 today. GENERAL: The patient is awake, alert, oriented, appropriate, very pleasant demeanor. The patient is accompanied by her . HEENT: Shows normocephalic, atraumatic. Extraocular movements are intact and symmetrical. Oral cavity shows mucous membranes moist and pink. Dentition is intact. NECK: Shows anterior throat supple. CHEST: Shows normal on inspection. Breath sounds clear bilaterally. HEART: Shows S1, S2 clear. No murmurs auscultated. ABDOMEN: Soft, nontender, nondistended. Easily palpable intrathecal pump is noted, which is nontender with well-healed surgical scar. BACK: The patient's back shows advanced kyphosis and flattening of lumbar lordotic curvature. Lumbar paraspinous muscle shows symmetrical and with palpation shows some moderate tenderness diffusely bilaterally, but only diffusely without significant radiation. The patient shows good rotational motion of lumbar spine, both laterally as well as some extension and flexion with some moderate tenderness with extension only. PLAN: Options were discussed with the patient. The patient's old chart was reviewed as her current medication regimen updated. Current review of systems updated today as well. We will refill the patient's Duragesic patches for a 2-month period. The patient has had appropriate K-TRACS reporting as well as appropriate urinalysis today. The patient is given instruction as well as side effects to be aware of with the medication and will be given a 2-month medication refill. The patient will follow up in approximately 2 months or sooner as necessary, was counseled as to activity level as well as medication regimen and side effects to be aware of. STACEY VALERIO MD DR: NEYDA/viviana JOB#: [id number] / [id number]
== END | disposition home or self-care (01) ==
LOC: PNCL 11:24
PROVIDERS: ATTEND Anesthesiology
DX: M47.816 Spondylosis without myelopathy or radiculopathy, lumbar region (principal)
CPT/HCPCS: G0463

== ENCOUNTER → 2020-08-22 | Outpatient (CLI) | payer MEDICARE ==
--- NOTE | 2020-08-22 11:48 | PDOC ---
Progress Note - Pain Clinic Date of Service: DOS: DATE: 08/22/20 TIME: 11:45 Diagnosis: Dx: Low back pain with lumbar spondylosis Spasticity History or Present Illness: HPI: 70-year-old female returns follow-up status post medication management with Duragesic patches 75 mcg. Patient reports she is doing very well with these and without any side effects. Patient reports her pain is well controlled and she has been on a very stable regimen for extended period of time with about a 70 to 80% improvement without side effects no itching no nausea no dysphoria constipation etc. Patient reports she is still having some significant pain in the low back is using a wheelchair when she cannot ambulate also has a walker that she brings with her. Patient reports its better with sitting or laying down worse with walking and standing especially standing for prolonged periods greater than 20 to 30 minutes. Patient reports she is sleeping well at night does not awaken her from sleep rates her pain is a 6 on scale 10 is worse over the past week 5 on average to its least is a 3 today patient reports it is dull and aching in the low back itself. Patient reports doing well with her baclofen pump as well which is managed by her neurologist without side effects as well. Physical Exam: VS: Blood pressure is 143/62 pulse 80 respirations 18 temperature is 98.2 F height is 5 feet 4 inches weight is 135 pounds PE: PHYSICAL EXAMINATION: GENERAL: The patient is awake, alert, oriented, appropriate, very pleasant demeanor, patient accompanied by her . HEENT: Shows normocephalic, atraumatic. Extraocular movements are intact and symmetrical. Oral cavity: Mucous membranes moist and pink. NECK: Shows anterior throat supple without palpable lymphadenopathy noted. Swallow reflex symmetrical. CHEST: Shows normal on inspection. Breath sounds are clear bilaterally, distant but no rales rhonchi wheezes auscultated. HEART: Shows S1, S2 clear. No murmurs auscultated. ABDOMEN: Soft, nontender, nondistended, obese. No palpable organomegaly is noted. BACK: Shows spine grossly in the midline. Normal-appearing cervical lordotic curvature. There is significantly increased thoracic kyphosis, some flattening of the lumbar lordotic curvature. Lumbar paraspinous muscles show symmetrical on inspection, on palpation shows some moderate tenderness diffusely throughout the upper, middle and lower distribution of the paraspinous muscles without specific trigger points, without radiation of pain. The patient has good rotational motion of the lumbar spine, both laterally as well as extension and flexion without significant difficulty. No tenderness over the spinous processes, sacrum or sacroiliac regions. EXTREMITIES: Lower extremities show deep tendon reflexes 1+ in the patellar and tendo calcaneus tendons. Motor exam is 4 on a scale of 5 with right dorsiflexion, extension, quadriceps and hamstring flexion and 4/5 on the left. Peripheral pulses are 1 posterior tibial. No peripheral edema is noted bilatera lly. Lower extremities are warm and dry to touch, equal in color and appearance. SKIN: Shows warm and dry, good turgor. No edema. No sores, rashes or bruising throughout. Procedure: Procedure: Options discussed with the patient. Patient chart was reviewed as her current medication regimen updated current review of systems updated today as well. We will refill patient's Duragesic patches 75 mcg or 2-month period. Patient has had appropriate K tracks report as well as appropriate urinalyses to date. We will have a urinalysis drawn today as part of routine screening. Patient was given instructions well side effects beware with the medications. Patient will return to clinic in approximate 2 months or sooner as necessary. Medication Injected: Med Injected: None Condition at Discharge: Condition at Discharge: Condition at discharge is stable. STACEY VALERIO MD Aug 22, 2020 11:48
== END | disposition home or self-care (01) ==
LOC: PNCL 10:54
PROVIDERS: ATTEND Anesthesiology
DX: M47.816 Spondylosis without myelopathy or radiculopathy, lumbar region (principal); R25.2 Cramp and spasm; Z79.82 Long term (current) use of aspirin; Z79.899 Other long term (current) drug therapy; Z88.0 Allergy status to penicillin; Z88.8 Allergy status to other drugs, medicaments and biological substances
CPT/HCPCS: G0463

== ENCOUNTER → 2020-10-17 | Outpatient (CLI) | payer MEDICARE ==
--- NOTE | 2020-10-17 11:46 | PDOC ---
Progress Note - Pain Clinic Date of Service: DOS: DATE: 10/17/20 TIME: 11:42 Diagnosis: Dx: Low back pain with lumbar spondylosis Spasticity History or Present Illness: HPI: 70-year-old female returns follow-up status post medication management with Duragesic patches 75 mcg. Patient reports doing very well has been on a very stable regimen of the medication as well as baclofen pump which is managed by her neurologist. Patient reports still some pain in the low back but very manageable with the Duragesic patches where she is able to do her daily activities with very greater ease and comfort and control pain with about a 75% improvement overall in pain and without side effects. Patient rates her pain a 6 on scale 10 is worse over the past week 3 on average to its least is a 2 today patient reports is aching and dull in the low back spasticity is well controlled with her baclofen pump as well. Patient reports he sleeps well at night generally gets around and does her daily activities with reasonable comfort without most limitation. Patient reports no new motor or sensory deficits or other complaints. Patient is using a wheelchair for most times when she is traveling and has 1 with her today as well. Physical Exam: VS: Blood pressure 124/40 pulse 55 respirations 18 temperature 98.4 F height is 5 feet 4 inches weight 135 pounds PE: PHYSICAL EXAMINATION: GENERAL: The patient is awake, alert, oriented, appropriate, very pleasant in demeanor, patient accompanied by her . HEENT: Shows normocephalic, atraumatic. Extraocular movements are intact and symmetrical. NECK: Shows anterior throat supple without palpable lymphadenopathy noted. Swallow reflex symmetrical. CHEST: Shows normal on inspection. Breath sounds are clear bilaterally, distant but no rales or rhonchi. HEART: Shows S1, S2 clear. No murmurs auscultated. ABDOMEN: Soft, nontender, nondistended, obese easily palpable intrathecal pump noted with well-healed surgical scar. No palpable organomegaly is noted. BACK: Shows spine grossly in the midline. Normal-appearing cervical lordotic curvature. There is slightly increased thoracic kyphosis, some minor flattening of the lumbar lordotic curvature. Lumbar paraspinous muscles show symmetrical on inspection, on palpation shows some moderate tenderness diffusely throughout the upper, middle and lower distribution of the paraspinous muscles without specific trigger points, without radiation of pain. The patient has good rotational motion of the lumbar spine, both laterally as well as extension and flexion without significant difficulty. EXTREMITIES: Lower extremities show deep tendon reflexes 1+ in the patellar and tendo calcaneus tendons. Motor exam is 4 on a scale of 5 with right dorsiflexion, extension, quadriceps and hamstring flexion and 4/5 on the left. Peripheral pulses are 1+ posterior tibial. No peripheral edema is noted rehana aterally. SKIN: Shows warm and dry, good turgor. No edema. No sores, rashes or bruising throughout. Procedure: Procedure: Options discussed with patient. Patient chart was reviewed as her current medication regimen updated current review of systems updated today as well. We will proceed with refill of patient's Duragesic patches 75 mcg. Patient was given instructions as well as side effects to beware of these with the medications. Patient has had appropriate K tracks report as well as appropriate urinalyses to date and we will make this a 2-month refill. Patient will return to the clinic in approximate 2 months or sooner as necessary. Medication Injected: Med Injected: None Condition at Discharge: Condition at Discharge: Condition at discharge is stable. STACEY VALERIO MD Oct 17, 2020 11:46
== END | disposition home or self-care (01) ==
LOC: PNCL 11:16
PROVIDERS: ATTEND Anesthesiology
DX: M47.816 Spondylosis without myelopathy or radiculopathy, lumbar region (principal); M54.5 Low back pain; R25.2 Cramp and spasm; Z88.0 Allergy status to penicillin; Z79.82 Long term (current) use of aspirin; Z79.899 Other long term (current) drug therapy
CPT/HCPCS: 99212; G0463

== ENCOUNTER → 2020-12-12 | Outpatient (CLI) | payer MEDICARE ==
[~2020-12-12] MED LIST changes: +FENT1PAT92 TP
--- NOTE | 2020-12-12 12:40 | PDOC ---
Progress Note - Pain Clinic Date of Service: DOS: DATE: 12/12/20 TIME: 12:34 Diagnosis: Dx: Low back pain, with lumbar spondylosis Spasticity History or Present Illness: HPI: 70-year-old female returns in follow-up status post medication management with Duragesic patch 75 mcg. Patient reports has been doing very well with this very stable no side effects from the medication is enabled her to do most of her daily activities although she is fairly sedentary by her admission she has been doing quite well with no increase in breakthrough pain still pain low back is her main complaint rated as a 6 on scale 10 is worse over the past week for an average to its least is a 4 today patient reports worse with changing positions getting up and down generally does not awaken her from sleep at night however and again no side effects with the medication patient reports approximately 70 to 80% improvement with the medications again without side effects patient describes the pain in the back is just an aching pain. Patient also has a baclo fen pump which she reports is doing well with controlling her spasticity. Patient reports no new motor or sensory deficits no bowel or bladder incontinence or concerns. Physical Exam: VS: Blood pressure 106/58 pulse 67 respirations 18 temperature 90 Fahrenheit height is 5 feet 2 inches weight is 136 pounds PE: PHYSICAL EXAMINATION: GENERAL: The patient is awake, alert, oriented, appropriate, very pleasant in demeanor, patient accompanied by her . HEENT: Shows normocephalic, atraumatic. Extraocular movements are intact and symmetrical. Oral cavity: Mucous membranes moist and pink. NECK: Shows anterior throat supple without palpable lymphadenopathy noted. Swallow reflex symmetrical. CHEST: Shows normal on inspection. Breath sounds are clear bilaterally, distant but no rales or rhonchi. HEART: Shows S1, S2 clear. No murmurs auscultated. ABDOMEN: Soft, nontender, nondistended, obese. Easily palpable intrathecal pump is again noted. No palpable organomegaly is noted. No rebound or guarding demonstrated. BACK: Shows spine grossly in the midline. Normal-appearing cervical lordotic curvature. There is significantly increased thoracic kyphosis, some flattening of the lumbar lordotic curvature. Lumbar paraspinous muscles show symmetrical on inspection, on palpation shows some moderate tenderness diffusely throughout the upper, middle and lower distribution of the paraspinous muscles without specific trigger points, without radiation of pain. The patient has good rotational motion of the lumbar spine, both laterally as well as extension and flexion without significant difficulty. No tenderness over the spinous processes, sacrum or sacroiliac regions. EXTREMITIES: Lower extremities show deep tendon reflexes 1 in the patellar and tendo calcaneus tendons. Motor exam is 4 on a scale of 5 with right dorsiflexion, extension, quadriceps and hamstring flexion and 4/5 on the left. Peripheral pulses are 1 posterior tibial. No peripheral edema is noted b ilaterally. Lower extremities are warm and dry. SKIN: Shows warm and dry, good turgor. No edema. No sores, rashes or bruising throughout. Procedure: Procedure: Options discussed with the patient. Patient's old chart was reviewed as her current medication regimen updated current review of systems updated today as well. We will refill patient's Duragesic patche as patient has had very good results with the medication and has been on very stable regimen without side effects. Patient has had appropriate K tracks reporting as well as appropriate urinalyses to date as well. We will refill this via electronic prescribing for 1 month prescription. Patient was given instructions well side effects beware with the medication. Patient will follow up in approximately 4 weeks as scheduled. Medication Injected: Med Injected: None Condition at Discharge: Condition at Discharge: Condition at discharge stable. STACEY VALERIO MD Dec 12, 2020 12:40
== END ==
LOC: PNCL 11:20
PROVIDERS: ATTEND Anesthesiology
DX: M47.816 Spondylosis without myelopathy or radiculopathy, lumbar region (principal); M54.5 Low back pain
CPT/HCPCS: 99212; G0463

== ENCOUNTER → 2021-01-22 | Outpatient (CLI) | payer MEDICARE ==
[~2021-01-22] MED LIST changes: +FENT1PAT19 TD
--- NOTE | 2021-01-22 14:57 | PDOC ---
Progress Note - Pain Clinic Date of Service: DOS: DATE: 01/22/21 TIME: 14:55 Diagnosis: Dx: Low back pain with lumbar spondylosis Spasticity History or Present Illness: HPI: Telemedicine visit with patient today with identification with full date of and full name, total time spent: 12 minutes 71-year-old female with medication management with Duragesic patches requesting refill of the patches as she has had a very stable regimen with these patches for extended period time several years with about 70 to 80% improvement overall without any side effects. Patient reports her pain is well controlled she is still fairly cautious about her activity but still pain across the low back and into the hips and legs at times mostly in the low back itself. Patient also has a baclofen pump which is maintained and witnessed with her neurologist. Patient reports she is doing very well with the pain reduction is very stable had no side effects and no other complaints. Patient has had appropriate K tracks report as well as appropriate urinalyses to date and we will refill patient's medication via electronic prescription. Patient was given instructions well si de effects aware of with the medication and will follow up in approximate 4 weeks as scheduled. Physical Exam: PE: STACEY VALERIO MD Jan 22, 2021 14:57
== END | disposition home or self-care (01) ==
LOC: PNCL 14:46
PROVIDERS: ATTEND Anesthesiology
DX: M47.816 Spondylosis without myelopathy or radiculopathy, lumbar region (principal); R25.2 Cramp and spasm; Z79.82 Long term (current) use of aspirin; Z79.899 Other long term (current) drug therapy; Z88.0 Allergy status to penicillin; Z88.8 Allergy status to other drugs, medicaments and biological substances
CPT/HCPCS: G0463

== ENCOUNTER → 2021-03-11 | Outpatient (CLI) | payer MEDICARE ==
--- NOTE | 2021-03-11 14:35 | PDOC ---
Progress Note - Pain Clinic Date of Service: DOS: DATE: 03/11/21 TIME: 14:32 Diagnosis: Dx: Low back pain Spasticity Lumbar spondylosis History or Present Illness: HPI: 71-year-old female returns for follow-up status post medication management with Duragesic patches. Patient reports he did very well with these and is doing very well with very stable regimen still some pain in the low back itself but very well controlled by about 75% or better with the Duragesic patch and without side effects. Patient reports he is doing well doing her daily activities with good ease and comfort sleeping well at night generally does not awaken her from sleep at night. Patient also has an intrathecal pump with baclofen for spasticity that is managed by her neurologist. Patient reports no new motor or sensory deficits rates her pain is a 6 on scale 10 is worse over the past week 3 on average to its least and is a 2 today patient reports a dull ache in the low back which is very tolerable with watching her activity and she knows what activities will exacerbate impressed avoid these as best she can. Patient reports no new motor or sensory deficits Physical Exam: VS: Blood pressure is 144/50 pulse 94 respirations 18 temperature is 98.3 F height and weight were deferred as patient is in a wheelchair. PE: PHYSICAL EXAMINATION: GENERAL: The patient is awake, alert, oriented, appropriate, very pleasant in demeanor, patient accompanied by her . HEENT: Shows normocephalic, atraumatic. Extraocular movements are intact and symmetrical. Oral cavity: Mucous membranes moist and pink. Dentition is intact. NECK: Shows anterior throat supple without palpable lymphadenopathy noted. Swallow reflex symmetrical. CHEST: Shows normal on inspection. Breath sounds are clear bilaterally, distant but no rales or rhonchi. HEART: Shows S1, S2 clear. No murmurs auscultated. ABDOMEN: Soft, nontender, nondistended, obese with easily palpable intrathecal pump. No palpable organomegaly is noted. BACK: Shows spine grossly in the midline. Normal-appearing cervical lordotic curvature. There is fairly significantly increased thoracic kyphosis, some flattening of the lumbar lordotic curvature. Lumbar paraspinous muscles show symmetrical on inspection, on palpation shows some moderate tenderness diffusely throughout the upper, middle and lower distribution of the paraspinous muscles, but without specific trigger points, without radiation of pain. The patient has good rotational motion of the lumbar spine, both laterally as well as extension and flexion without significant difficulty. EXTREMITIES: Lower extremities show deep tendon reflexes 1 to in the patellar and tendo calcaneus tendons. Motor exam is 4 on a scale of 5 with right dorsiflexion, extension, quadriceps and hamstring flexion and 4/5 on the left. Peripheral pulses are 1+ posterior tibial. No peripheral edema is noted bi laterally. Lower extremities are warm and dry. SKIN: Shows warm and dry, good turgor. No edema. No sores, rashes or bruising throughout. Procedure: Procedure: Options were discussed with patient. Patient chart was reviewed as her current medication regimen updated current review of systems updated today as well. We will refill patient's Duragesic patch 75 mcg with instructions side effects be aware of discussed. Patient is done very well with the education has had appr opriate K tracks reporting today and appropriate urinalyses to date. We also have a urinalysis done today as part of routine screening. Patient to follow-up in approximate 4 weeks as scheduled. Medication Injected: Med Injected: None Condition at Discharge: Condition at Discharge: Condition at discharge stable. STACEY VALERIO MD Mar 11, 2021 14:35
== END | disposition home or self-care (01) ==
LOC: PNCL 13:30
PROVIDERS: ATTEND Anesthesiology
DX: M47.816 Spondylosis without myelopathy or radiculopathy, lumbar region (principal); R25.2 Cramp and spasm; Z79.82 Long term (current) use of aspirin; Z79.899 Other long term (current) drug therapy; Z88.0 Allergy status to penicillin; Z88.8 Allergy status to other drugs, medicaments and biological substances
CPT/HCPCS: 99212; G0463

== ENCOUNTER → 2021-04-22 | Outpatient (CLI) | payer MEDICARE ==
--- NOTE | 2021-04-22 13:22 | NUR ---
Patient called requesting med refills, Verified patient , and pharmacy. Patient denies any new medications, Allergies,new medical problems, or constipation. Patient states her level of pain is around a 2. ktracts checked. call transferred to doctor Kolb.
--- NOTE | 2021-04-22 13:33 | PDOC ---
Progress Note - Pain Clinic Date of Service: DOS: DATE: 04/22/21 TIME: 13:25 Diagnosis: Dx: Low back pain with spasticity and lumbar spondylosis History or Present Illness: HPI: Telemedicine visit today with patient's identity verified with full date of as well as full name, total time spent 12 minutes 71-year-old female via telemedicine visit today requesting refill of Duragesic patch. Patient does very well with this has been a very stable regimen for extended period of time without side effects patient reports she continues to do well her pain is controlled by about 70% or better watches her activity fairly closely as far as not exaggerating any temporal pain causing activities but gets around as well as she would like to and sleeps well at night. Patient also has intrathecal pump of baclofen which is managed by her neurologist and reports that is doing well with her spasticity. Patient reports again no side effects with the medication she has had appropriate K tracks report as well as appropriate urinalyses to date. We will refill patient's medication for 1 month prescription patient will follow up in approximately 1 month as scheduled. Physical Exam: PE: STACEY VALERIO MD Apr 22, 2021 13:33
== END | disposition home or self-care (01) ==
LOC: PNCL 10:40
PROVIDERS: ATTEND Anesthesiology
DX: M47.816 Spondylosis without myelopathy or radiculopathy, lumbar region (principal); R25.2 Cramp and spasm; Z79.82 Long term (current) use of aspirin; Z79.899 Other long term (current) drug therapy; Z88.0 Allergy status to penicillin; Z88.8 Allergy status to other drugs, medicaments and biological substances
CPT/HCPCS: 99212; G0463

== ENCOUNTER → 2021-05-06 | Outpatient (CLI) | payer MEDICARE ==
--- NOTE | 2021-05-06 13:40 | PDOC ---
Progress Note - Pain Clinic Date of Service: DOS: DATE: 05/06/21 TIME: 13:35 Diagnosis: Dx: Lumbar spondylosis with low back pain Spasticity History or Present Illness: HPI: 71-year-old female returns for follow-up status post medication management with Duragesic patch. Patient also has intrathecal pump with baclofen which is managed with her neurologist. Patient reports he is doing very well with the Duragesic patches 75 mcg without any side effects and no skin irritation from the patch. Patient reports about a 75 to 80% improvement with the patch itself. Patient reports no significant pain in the low back and in the bilateral lower extremities at times worse with ambulation changing positions usually utilizing a wheelchair which she has with her today to travel and get around. Patient reports her pain is a 7 on scale 10 is worst over the past week 5 on average 3 distillation is a 5 today patient what is aching and dull in the low back itself no radiation into the lower extremities currently and reports better with sitt ing or laying down generally no pain with laying down does not awaken her from sleep at night. Patient reports no new bowel or bladder incontinence no motor deficits. Physical Exam: VS: Blood pressure is 151/98 pulse 90 respirations 16 temperature 90.9 F height is 5 feet 2 inches weight is 140 pounds. PE: PHYSICAL EXAMINATION: GENERAL: The patient is awake, alert, oriented, appropriate, very pleasant in demeanor, sitting upright in her wheelchair accompanied by her . HEENT: Shows normocephalic, atraumatic. Extraocular movements are intact and symmetrical. Oral cavity: Mucous membranes moist and pink. NECK: Shows anterior throat supple without palpable lymphadenopathy noted. Swallow reflex symmetrical. CHEST: Shows normal on inspection. Breath sounds are clear bilaterally. HEART: Shows S1, S2 clear. No murmurs auscultated. ABDOMEN: Soft, nontender, nondistended. No palpable organomegaly is noted. Easily palpable intrathecal pump is again noted with well-healed surgical scar. BACK: Shows spine grossly in the midline. Normal-appearing cervical lordotic curvature. There is significantly increased thoracic kyphosis, some moderate flattening of the lumbar lordotic curvature. Lumbar paraspinous muscles show symmetrical on inspection, on palpation shows some moderate tenderness diffusely throughout the upper, middle and lower distribution of the paraspinous muscles, but without specific trigger points, without radiation of pain. The patient has good rotational motion of the lumbar spine, both laterally as well as extension and flexion without significant difficulty. No tenderness over the spinous processes, sacrum or sacroiliac regions. EXTREMITIES: Lower extremities show deep tendon reflexes 1+ in the patellar and tendo calcaneus tendons. Motor exam is 4 on a scale of 5 with right dorsiflexion, extension, quadriceps and hamstring flexion and 4/5 on the left. Peripheral pulses are 1+ posterior tibial. No peripheral edema is noted bilaterally. Lower extremities are warm and dry to touch, equal in color and appearance. SKIN: Shows warm and dry, good turgor. No edema. No sores, rashes or bruising throughout. Procedure: Procedure: Options were discussed with patient. Patient chart was reviewed as her current medication regimen updated current review of systems updated today as well. We will refill patient's Duragesic patch 75 mcg with instructions side effects aware discussed with the medication. Patient will be given a 30-day supply with instructions and side effect to be aware of discussed. Patient will follow up in approximately 30 days as scheduled. Medication Injected: Med Injected: None Condition at Discharge: Condition at Discharge: Condition at discharge is stable. STACEY VALERIO MD May 06, 2021 13:40
== END | disposition home or self-care (01) ==
LOC: PNCL 13:02
PROVIDERS: ATTEND Anesthesiology
DX: M47.816 Spondylosis without myelopathy or radiculopathy, lumbar region (principal); R25.2 Cramp and spasm; Z79.82 Long term (current) use of aspirin; Z79.899 Other long term (current) drug therapy; Z88.8 Allergy status to other drugs, medicaments and biological substances
CPT/HCPCS: 99212; G0463

== ENCOUNTER → 2021-06-19 | Outpatient (CLI) | payer MEDICARE ==
--- NOTE | 2021-06-19 11:28 | PDOC ---
Progress Note - Pain Clinic Date of Service: DOS: DATE: 06/19/21 TIME: 11:25 Diagnosis: Dx: Lumbar spondylosis Spasticity Chronic pain syndrome History or Present Illness: HPI: Telemedicine visit today with patient's identity verified with full name as well as full date of , total time spent 12 minutes 71-year-old female via telemedicine visit today requesting refill of Duragesic patch. Patient reports she is doing very well with these is been on a very stable regimen and indeed has had very good reduction in pain by about 75% most times with the medication patient also taking meloxicam which she believes helps the pain also patient does have a intrathecal pump which contains baclofen for spasticity,, functioning satisfactorily as well. Patient reports no side effect s with the Duragesic patches or any other medication has had appropriate K tracks reporting as well as appropriate urinalyses to date. Patient reports still some pain in the lower mid back and feels that her kyphosis of the thoracic spine is become somewhat worse although she is fairly sedentary feet, she is traveling somewhere which she does comfortably with the medication regime n currently. We will refill patient's medication for 30-day period. Patient was given instruction as well as side effects to beware of with the medication. Patient to follow-up in approximate 30 days as scheduled. Physical Exam: PE: STACEY VALERIO MD Jun 19, 2021 11:28
--- NOTE | 2021-06-19 11:39 | NUR ---
patient called requesting a refill ,name , Pharmacy next appointment verified. Ktracts checked and is correct.patient states her pain level is a 3 denies constipation or any new medical problems . Verified next appointment, call transferred to Dr Kolb.
== END | disposition home or self-care (01) ==
LOC: PNCL 11:22
PROVIDERS: ATTEND Anesthesiology
DX: G89.4 Chronic pain syndrome (principal); M47.816 Spondylosis without myelopathy or radiculopathy, lumbar region; R25.2 Cramp and spasm; Z79.82 Long term (current) use of aspirin; Z79.899 Other long term (current) drug therapy; Z88.0 Allergy status to penicillin; Z88.8 Allergy status to other drugs, medicaments and biological substances
CPT/HCPCS: 99212; G0463

== ENCOUNTER → 2021-07-01 | Outpatient (CLI) | payer MEDICARE ==
--- NOTE | 2021-07-01 13:40 | PDOC ---
Progress Note - Pain Clinic Date of Service: DOS: DATE: 07/01/21 TIME: 13:36 Diagnosis: Dx: Low back pain with lumbar spondylosis Spasticity History or Present Illness: HPI: 71-year-old female returns for follow-up status post medication management with Duragesic patch. Patient reports doing very well is been a very stable regimen with about a 75 to 80% improvement with the medication. Patient reports he has no side effects no nausea vomiting itching constipation no dysphoria with no memory issues and is tolerating it very well. Patient reports he is doing well with her baclofen intrathecal pump as well. Patient reports pain is a 7 at its worst over the past week 3 on average 3 to [place] is a 3 today. Describes as dull and aching in the low back but again fairly well controlled and she limits her activity to that which does not exacerbate the pain to the best she can. Patient is using a wheelchair on her presentation today and uses 1 at home when she can as well as it is difficult for her to walk as she has some advanced thoracic kyphosis as well. Patient reports no other side effects no new deficits. Patient reports she generally sleeps well at night generally does not awaken her from sleep and sleeps about 8 hours at a time. Patient is had appropriate K tracks report as well as appropriate urinalyses as well to date. Physical Exam: VS: Blood pressure is 134/69 pulse 67 respirations 20 temperature 98.2 F height and weight were deferred per patient's request that she is in a wheelchair. PE: PHYSICAL EXAMINATION: GENERAL: The patient is awake, alert, oriented, appropriate, very pleasant in demeanor, patient accompanied by her . HEENT: Shows normocephalic, atraumatic. Extraocular movements are intact and symmetrical. NECK: Shows anterior throat supple without palpable lymphadenopathy noted. Swallow reflex symmetrical. CHEST: Shows normal on inspection. Breath sounds are clear bilaterally no rales or rhonchi auscultated. HEART: Shows S1, S2 clear. No murmurs auscultated. ABDOMEN: Soft, nontender, nondistended. No palpable organomegaly is noted. BACK: Shows spine grossly in the midline. Normal-appearing cervical lordotic curvature. There is significantly increased thoracic kyphosis, some flattening of the lumbar lordotic curvature. Lumbar paraspinous muscles show symmetrical on inspection, on palpation shows some moderate tenderness diffusely throughout the upper, middle and lower distribution of the paraspinous muscles, but without specific trigger points, without radiation of pain. The patient has good rotational motion of the lumbar spine, both laterally as well as extension and flexion without significant difficulty. EXTREMITIES: Lower extremities show deep tendon reflexes 1 in the patellar and tendo calcaneus tendons. Motor exam is 4 on a scale of 5 with right dorsiflexion, extension, quadriceps and hamstring flexion and 4/5 on the left. Peripheral pulses are 1+ posterior tibial. No peripheral edema is noted bilaterally. Lower extremities are warm and dry. SKIN: Shows warm and dry, good turgor. No edema. No sores, rashes or bruising throughout. Procedure: Procedure: Options were discussed with the patient. Patient's old chart was reviewed as her current medication regimen updated current review of systems updated today as well. We will refill patient's Duragesic patch, with instructions and side effects aware of once again discussed. Again, patient has had appropriate K tracks report as well as appropriate urinalysis to date. Patient continues to do well with the medication is on a very stable regimen at this time. Patient will follow up in approximately 30 days as scheduled. Medication Injected: Med Injected: None Condition at Discharge: Condition at Discharge: Condition at discharge is stable. STACEY VALERIO MD Jul 01, 2021 13:40
== END | disposition home or self-care (01) ==
LOC: PNCL 13:26
PROVIDERS: ATTEND Anesthesiology
DX: M47.816 Spondylosis without myelopathy or radiculopathy, lumbar region (principal); R25.2 Cramp and spasm; Z79.82 Long term (current) use of aspirin; Z79.899 Other long term (current) drug therapy; Z88.0 Allergy status to penicillin; Z88.8 Allergy status to other drugs, medicaments and biological substances
CPT/HCPCS: 99212; G0463

== ENCOUNTER → 2021-08-21 | Outpatient (CLI) | payer MEDICARE ==
--- NOTE | 2021-08-21 11:14 | NUR ---
TELEHEALTH: Pt called for refills on Fentanyl patch. Verified name, , preferred pharmacy ([facility] in [place], [place]), and follow up office visit is scheduled for 09/01/21. Pt states pain level today is 3/10 and stable, but that her MS is bothering her more lately. Pt has chronic constipation d/t her disease process, but it is currently stable. Denies new allergies. Pt call transferred to Dr. Kolb for further evaluation.
--- NOTE | 2021-08-21 11:46 | PDOC ---
Progress Note - Pain Clinic Date of Service: DOS: DATE: 08/21/21 TIME: 11:44 Diagnosis: Dx: Low back pain with lumbar spondylosis Spasticity History or Present Illness: HPI: Telemedicine visit today with patient's identity verified with full date of as well as full name, total time spent 11 minutes, telephone voice only. 71-year-old female via telemedicine visit today requesting refill of Duragesic patch 75 mcg. Patient reports she continues to do very well with pain very well controlled by about 70 to 80% in the low back mid back as well as neck and shoulders patient reports she is able to function with her daily activities on a comfortable level with medications and has no side effects. Patient has been on a very stable regimen of the medication also has a baclofen pump which is managed an outside facility. Patient reports no changes side effects of medication patient has had appropriate K tracks report as well as appropriate urinalyses to date as well. We discussed options with patient and her as well on the speaker phone today and will refill patient's medication via electronic prescription of Duragesic patch 75 mcg every 72 hours. Patient was given instructions well side effects beware with medication and will follow up in approximate 30 days as scheduled. Physical Exam: PE: STACEY VALERIO MD Aug 21, 2021 11:46
== END | disposition home or self-care (01) ==
LOC: PNCL 10:39
PROVIDERS: ATTEND Anesthesiology
DX: M47.816 Spondylosis without myelopathy or radiculopathy, lumbar region (principal); R25.2 Cramp and spasm; Z79.82 Long term (current) use of aspirin; Z79.899 Other long term (current) drug therapy; Z88.0 Allergy status to penicillin; Z88.8 Allergy status to other drugs, medicaments and biological substances
CPT/HCPCS: 99212; G0463

== ENCOUNTER → 2021-09-18 | Outpatient (CLI) | payer MEDICARE ==
--- NOTE | 2021-09-18 13:46 | PDOC ---
Progress Note - Pain Clinic Date of Service: DOS: DATE: 09/18/21 TIME: 13:42 Diagnosis: Dx: Spasticity Low back pain with lumbar spondylosis History or Present Illness: HPI: 71-year-old female returns for follow-up status post medication managed with Duragesic patches 75 mcg every 72 hours. Patient reports he is doing very well with this in a very stable regimen has about 80% improvement with her pain mostly in the low back with the medication. Patient also has a baclofen pump which she reports is working well without side effects as well. Patient reports pain is a 6 on scale 10 is worse over the past week 3 on average to its least is a 2 today patient reports she is basically been staying off her feet most the time and is fairly restricted to her wheelchair when transporting. Patient reports she is able to avoid activities that will exacerbate the pain and is sleeping well at night. Patient reports no specific side effects from the medication patch or the baclofen pump. Patient reports an aching pain in the back but does not generally travel any further than the hips or legs she is on her feet more than about 10 minutes. Patient reports no side effects with medication no new bowel or bladder incontinence no itching headaches dysphoria euphoria or nausea vomiting. Physical Exam: VS: Blood pressure is 184/73 pulse 68 respirations 18 temperature 98.6 F height 5 f eet 2 inches weight 140 pounds. PE: PHYSICAL EXAMINATION: GENERAL: The patient is awake, alert, oriented, appropriate, very pleasant in demeanor, patient accompanied by her . HEENT: Shows normocephalic, atraumatic. Extraocular movements are intact and symmetrical. Oral cavity: Mucous membranes moist and pink. NECK: Shows anterior throat supple without palpable lymphadenopathy noted. Swallow reflex symmetrical. CHEST: Shows normal on inspection. Breath sounds are clear bilaterally, distant but no rales rhonchi or wheezes auscultated. HEART: Shows S1, S2 clear. No murmurs auscultated. ABDOMEN: Soft, nontender, nondistended. No palpable organomegaly is noted. BACK: Shows spine grossly in the midline. Normal-appearing cervical lordotic curvature. There is significantly increased thoracic kyphosis, some flattening of the lumbar lordotic curvature. Lumbar paraspinous muscles show symmetrical on inspection, on palpation shows some moderate tenderness diffusely throughout the upper, middle and lower distribution of the paraspinous muscles without specific trigger points, without radiation of pain. The patient has good rotational motion of the lumbar spine, both laterally as well as extension and flexion without significant difficulty. Easily palpable intrathecal pump is again noted. EXTREMITIES: Lower extremities show deep tendon reflexes 1+ in the patellar and tendo calcaneus tendons. Motor exam is 4 on a scale of 5 with right dorsiflexion, extension, quadriceps and hamstring flexion and 4/5 on the left. Peripheral pulses are 1+ posterior tibial. No peripheral edema is noted bilaterally. Lower extremities are warm and dry to touch, equal in color and appearance. SKIN: Shows warm and dry, good turgor. No edema. No sores, rashes or bruising throughout. Procedure: Procedure: Options were discussed with the patient. Patient's old chart was reviewed as her current medication regimen updated current review of systems updated today as well. We will refill patient's Duragesic patch 75 mcg every 72 hours with instructions side effects aware of discussed with the medication. Patient has had appropriate K tracks report as well as appropriate urinalyses to date as well and we will make this a 30 days supply. Patient will follow up in approximate 30 days as scheduled. Medication Injected: Med Injected: None Condition at Discharge: Condition at Discharge: Condition at discharge is stable. STACEY VALERIO MD September 18, 2021 13:46
== END | disposition home or self-care (01) ==
LOC: PNCL 12:48
PROVIDERS: ATTEND Anesthesiology
DX: M47.816 Spondylosis without myelopathy or radiculopathy, lumbar region (principal); M54.50 Low back pain, unspecified; R25.2 Cramp and spasm; Z79.82 Long term (current) use of aspirin; Z79.899 Other long term (current) drug therapy; Z88.0 Allergy status to penicillin; Z88.8 Allergy status to other drugs, medicaments and biological substances
CPT/HCPCS: G0463